=== PATIENT | male | born 2000 | race Caucasian/White ===

== ENCOUNTER 2024-03-08 08:44 | Outpatient (RCR) | payer BC, SELFPAY | END 2024-03-08 23:59 | disposition home or self-care (01) | LOC: RPT 08:44 | PROVIDERS: ATTENDING PHYSICIAN Physician Assistant Surgical | DX: S42.025D Nondisplaced fracture of shaft of left clavicle, subsequent encounter for fracture with routine healing (principal); Z73.6 Limitation of activities due to disability | CPT/HCPCS: 97110; 97162 ==

== ENCOUNTER 2024-03-24 16:49 | Outpatient (RCR) | payer BC, SELFPAY | END 2024-03-25 06:33 | disposition home or self-care (01) | LOC: RPT 16:49 | PROVIDERS: ATTENDING PHYSICIAN Physician Assistant Surgical | DX: S42.025D Nondisplaced fracture of shaft of left clavicle, subsequent encounter for fracture with routine healing (principal) | CPT/HCPCS: 97110 ==